=== PATIENT | male | born 1980 | race African-American/Black ===

== ENCOUNTER 2019-01-20 20:06 | Emergency (ER) | payer OTHER ==
[~2019-01-20] VITALS: Ht 157.5 cm; Wt 54.4 kg
[~2019-01-20 20:06] MED LIST: FLONASE 0.05%50 MCG NS; IBUPROFEN 800800 M1 PO; LORATIDINE 10 M10 M1 PO; PHENERGAN 25 MG25 M1 PO; ZPAK PO
[2019-01-20] MEDS ORDERED: NORFLEX100 MG PO (22:02)
[2019-01-20] MEDS ORDERED: MOBIC7.5 MG PO (22:02)
[2019-01-20] MEDS ORDERED: BUTALB-APAP-CA1 EACH PO (22:02)
[2019-01-20 22:37] VITALS: BP 102/74
== END 2019-01-20 22:38 | disposition home or self-care (01) ==
LOC: ER 20:06
DX: R51 Headache (principal); Z88.0 Allergy status to penicillin